=== PATIENT | male | born 1960 | race Caucasian/White ===

== ENCOUNTER 2019-11-23 18:37 | Emergency (ER) | payer OTHER ==
[~2019-11-23] VITALS: Ht 177.8 cm; Wt 75.0 kg
[2019-11-23] MEDS ORDERED: ACETAMINOPHEN 325MG TABLET PO ONE (21:00)
[2019-11-24] MEDS ORDERED: ACETAMINOPHEN 325MG TABLET PO ONE (12:30)
[2019-11-25 18:30] VITALS: BP 115/72
== END 2019-11-25 19:28 | disposition left against medical advice (07) ==
LOC: ER 18:37
DX: M25.511 Pain in right shoulder (principal); G40.909 Epilepsy, unspecified, not intractable, without status epilepticus; I10 Essential (primary) hypertension; I25.2 Old myocardial infarction; Z59.0 Homelessness; V03.90XA Pedestrian on foot injured in collision with car, pick-up truck or van, unspecified whether traffic or nontraffic accident, initial encounter; Y93.89 Activity, other specified; Y92.488 Other paved roadways as the place of occurrence of the external cause
CPT/HCPCS: 73030; 99285